=== PATIENT | female | born 1965 | race Caucasian/White ===

== ENCOUNTER 2016-05-04 07:14 | Emergency (ER) | payer OTHER ==
[2016-05-04 07:33] VITALS: BP 120/76
--- NOTE | 2016-05-04 07:55 | UC ---
Respiratory Complaint HPI - HPI Summary HPI Summary: The patient comes in today for: 1. Sinus congestion Onset: 4 days ago. Palliative/provocative: Nothing makes her symptoms better or worse. Quality: Pressure Region: Sinuses. Severity: 6/10 Time: Constant. Associated symptoms: Sore throat: Present. Rhinitis: Yellow Upper tooth pain: None. Cough: "a little bit." Fevers: None. Chest pain: None. Dyspnea: None. * - History of Current Complaint Chief Complaint: UCRespiratory Stated Complaint: SINUS COMPLAINT Time Seen by Provider: 05/04/16 07:51 Hx Obtained From: Patient Hx Last Menstrual Period: Present ?: No - Allergies/Home Medications Allergies/Adverse Reactions: Allergies Allergy/AdvReac Type Severity Reaction Status Date / Time Codeine Allergy Difficulty Verified 05/04/16 07:22 Breathing Meperidine [From Demerol HCl] Allergy Difficulty Verified 05/04/16 07:22 Breathing seasonal Allergy Sneezing Uncoded 05/04/16 07:22 tomatoes Allergy Vomiting Uncoded 05/04/16 07:22 Home Medications: Home Medications Meloxicam(NF) [Mobic(NF)] 15 mg PO DAILY 05/04/16 [History Confirmed 05/04/16] Zeoyaxvciuvxw-Srnoivetcnuwq-Or [Mucinex Sinus-Max Pressur] 2 cap PO Q4H PRN [History Confirmed 05/04/16] PMH/Surg Hx/FS Hx/Imm Hx Previously Healthy: Yes Endocrine History Of: Denies: Diabetes, Thyroid Disease, Hyperthyroidism, Hypothyroidism, Dyslipidemia Cardiovascular History Of: Denies: Cardiac Disorders, Hypertension, Pacemaker/ICD, Myocardial Infarction , Congestive Heart Failure, Atrial Fibrillation, Deep Vein Thrombosis, Bleeding Disorders Respiratory History Of: Denies: COPD, Asthma, Bronchitis, Pneumonia, Pulmonary Embolism GI/ History Of: Denies: Gastroesophageal Reflux, Ulcer, Gastrointestinal Bleed, Gall Bladder Disease, Kidney Stones, Diverticulitis, Renal Disease, Urosepsis Neurological History Of: Denies: TIA, CVA, Dementia, Seizures, Migraine Psychological History Of: Denies: Anxiety, Depression, Bipolar Disorder, Schizophrenia, Post Traumatic Stress Disorder Cancer History Of: Denies: Lung Cancer, Colorectal Cancer, Breast Cancer, Prostate Cancer Other History Of: Negative For: HIV, Hepatitis B, Hepatitis C, Anticoagulant Therapy - Surgical History Surgical History: Yes Surgery Procedure, Year, and Place: Cholecystectomy, ~1999. Thyroidectomy, 1991. Bilateral Patella "they snapped the cords" Surgery, as a teen - Family History Known Family History: Negative: Cardiac Disease, Hypertension - Social History Occupation: Employed Full-time Alcohol Use: "a glass every several weeks or so" Substance Use Type: None Smoking Status (MU): Never Smoked Tobacco - Immunization History Most Recent Influenza Vaccination: December 2015 Review of Systems Constitutional: Negative Skin: Negative Eyes: Negative ENT: Sore Throat, Nasal Discharge Respiratory: Negative Cardiovascular: Negative Gastrointestinal: Negative Genitourinary: Negative All Other Systems Reviewed And Are Negative: Yes Physical Exam Triage Information Reviewed: Yes Appearance: Well-Appearing, No Pain Distress, Well-Nourished Vital Signs: Initial Vital Signs Temp 98.2 F 05/04/16 07:19 Pulse 80 05/04/16 07:19 Resp 16 05/04/16 07:19 BP 120/76 05/04/16 07:19 Pulse Ox 99 05/04/16 07:19 Vital Signs Reviewed: Yes Eyes: Positive: Conjunctiva Clear. Negative: Discharge ENT: Positive: Hearing grossly normal, Other: - Sinuses: Pressure leads to discomfort.. Negative: Pharyngeal erythema, Nasal congestion, Nasal drainage, TM bulging, TM dull, TM red, Tonsillar swelling, Tonsillar exudate Dental: Negative: Gross Decay/Caries @, Dental Fracture @ Neck: Positive: Supple, Nontender, No Lymphadenopathy. Negative: Nuchal Rigidity Respiratory: Positive: Chest non-tender, Lungs clear, No respiratory distress, No accessory muscle use. Negative: Crackles, Wheezing Cardiovascular: Positive: RRR, No Murmur Abdomen Description: Positive: Nontender, No Organomegaly, Soft. Negative: Distended, Guarding Musculoskeletal: Positive: Strength Intact, ROM Intact, No Edema Neurological: Positive: Alert, Muscle Tone Normal Psychological: Positive: Age Appropriate Behavior, Consolable Skin: Negative: rashes, breakdown UC Diagnostic Evaluation - Laboratory O2 Sat by Pulse Oximetry: 99 Respiratory Course/Dx - Differential Dx/Diagnosis Provider Diagnoses: Sinusitis Discharge - Discharge Plan Condition: Stable Disposition: HOME Patient Education Materials: Sinusitis (ED) Forms: *Work Release Referrals: Sara Christianson MD [Primary Care Provider] -
== END 2016-05-04 08:12 | disposition home or self-care (01) ==
LOC: UCCORT 07:14
DX: J32.9 Chronic sinusitis, unspecified (principal); M79.1 Myalgia; Z88.5 Allergy status to narcotic agent; Z91.018 Allergy to other foods
CPT/HCPCS: 99212; G0463

== ENCOUNTER 2017-02-02 05:57 | Day surgery (SDC) | payer OTHER ==
--- NOTE | 2017-01-26 10:33 | HP ---
AMENDED REPORT NOW INCLUDES COSIGNER DESIGNATION - ESIGNED BEFORE ADJUSTMENT HISTORY AND PHYSICAL: DATE OF SURGERY: 02/02/17 DATE OF OFFICE VISIT: 01/23/17 SURGEON: Dr. Suze Catherine * (DICTATED BY SULLY GUSTAFSON) PROCEDURE: Left knee arthroscopy with partial medial meniscectomy, possible chondroplasty, possible synovectomy. CHIEF COMPLAINT: Left knee pain. HISTORY OF PRESENT ILLNESS: Ms. Umanzor is a 51-year-old female with complaints of left knee pain and MRI shows a tear of the anterior horn of the medial meniscus. She has failed conservative treatment and elected to proceed with left knee arthroscopy with partial medial meniscectomy. PAST MEDICAL HISTORY: Hypothyroidism, history of DVT after a crush injury to the leg. PAST SURGICAL HISTORY: Partial thyroidectomy, bilateral knee arthroscopies, cholecystectomy. CURRENT MEDICATIONS: Naproxen, minocycline, and vitamin D. ALLERGIES: DEMEROL, CODEINE; however, PERCOCET is okay to take. FAMILY HISTORY: Diabetes and cancer. SOCIAL HISTORY: She is a 51-year-old female. She lives with her and son. She works in a [employer]. She does not smoke or use drugs. She uses occasional alcohol. REVIEW OF SYSTEMS: A complete 14-point review of systems was reviewed with the patient, positive for history of a DVT. She denies any history of anesthesia problems, hepatitis C or HIV. PHYSICAL EXAMINATION GENERAL: She is a well developed, well nourished, in no acute distress. VITAL SIGNS: She stands 5 feet 6 inches tall, weighs 200 pounds. Her blood pressure is 118/79, her heart rate is 80. HEENT: Normocephalic, atraumatic. NECK: Supple. No palpable lymph nodes. PULMONARY: Lungs are clear to auscultation bilaterally. CARDIO: Regular rate and rhythm. Strong S1 and S2. ABDOMEN: Soft, nontender, nondistended. NEUROLOGIC: Alert and oriented x3. Cranial nerves II through XII intact. MUSCULOSKELETAL: Left lower extremity, the skin is intact. There are no open wounds or abrasions. There is some tenderness over the medial joint line, 5 to 130 degrees of flexion. No varus or valgus instability. Positive Apley's and Blayne's. Negative Dee's. 2+ dorsalis pedis pulses. In the lower extremity muscle group strengths are intact at 5/5. ASSESSMENT AND PLAN: Ms. Umanzor is a 51-year-old female with complaints of left knee pain and MRI confirms a tear of the medial meniscus. She has elected to proceed with left knee arthroscopy with partial medial meniscectomy, possible chondroplasty, possible synovectomy, and surgery is scheduled for 02/02/[address] Catherine discussed the risks and benefits of the surgery at today' s visit and all of her questions were answered. She will follow up with Dr. Catherine 2 weeks after the surgery. SULLY GUSTAFSON [id number]/[facility] #: [id number] MTDD
[~2017-02-02 05:57] MED LIST: Buffered Lidocaine 0.9% SYRIN* 5 ML/SYR SYRINGE INTRADERM ONE
[2017-02-02] MEDS ORDERED: Dexamethasone IV* 4 MG/ML 1 ML (4 MG) IV SLOW PU ONE (06:00)
[2017-02-02] MEDS ORDERED: Famotidine TAB* 20 MG PO ONE (06:00)
[2017-02-02] MEDS ORDERED: Dexamethasone IV* 4 MG/ML 1 ML (4 MG) ONE (06:06)
[2017-02-02] MEDS ORDERED: Buffered Lidocaine 0.9% SYRIN* 5 ML/SYR SYRINGE ONE (06:07)
[2017-02-02] MEDS ORDERED: ceFAZolin 2 GM PREMIX (*) 2 GM/50 ML BAG IVPB ONE (06:07)
[2017-02-02] MEDS ORDERED: Famotidine TAB* 20 MG ONE (06:07)
[2017-02-02] MEDS ORDERED: EPINEPHrine AMP 1 MG/ML ONE (06:42)
[2017-02-02] MEDS ORDERED: methylPREDNISolone ACETATE 80* 80 MG/ML 1 ML VIAL ONE (06:42)
[2017-02-02] MEDS ORDERED: Bupivacaine 0.5% SDV PF* 30 ML VIAL ONE (06:42)
[2017-02-02] MEDS ORDERED: Midazolam* 1 MG/ML 2 ML VIAL (2 MG) ONE (07:19)
[2017-02-02] MEDS ORDERED: fentaNYL* 50 MCG/ML 2 ML VIAL (100 MCG VIAL) ONE ×3 (07:19→09:45)
[2017-02-02] MEDS ORDERED: Phenylephrine INJ* 10 MG/ML 1 ML VIAL (10 MG) ONE (07:54)
[2017-02-02] MEDS ORDERED: DiMENhydriNATE IV* 50 MG/ML VIAL IV PUSH PRN (08:08)
[2017-02-02] MEDS: fentaNYL* 50 MCG/ML 2 ML VIAL (100 MCG VIAL) IV PRN ×3 (08:53→09:45)
[2017-02-02] MEDS ORDERED: oxyCODONE/Acetamin 5/325 MG* TAB ONE (08:56)
[2017-02-02 11:00] VITALS: BP 101/65
--- NOTE | 2017-02-03 07:17 | OP ---
DATE OF OPERATION: 02/02/17 - [facility] DATE OF : 69 SURGEON: Suze Catherine MD SENIOR SYSTEMS DEVELOPER: SULLY Gomez. Ms. Castro did help throughout the procedure with preparation of the leg, retraction of the instruments, manipulation of the knee, and wound closure. ANESTHESIOLOGIST: Obdulio Gallegos MD ANESTHESIA: General. PRE-OP DIAGNOSIS: Left knee pain with medial meniscal tear. POST-OP DIAGNOSES: Left knee longitudinal tear of the anterior medial meniscus , radial tear of the posterior horn of the lateral meniscus, medial plica, medial and patellofemoral xhjytvke-gx-fmqkmv arthritis. OPERATIVE PROCEDURE: Left knee arthroscopy with partial medial meniscectomy, partial lateral meniscectomy, medial chondroplasty, medial plica excision. INDICATIONS: Ms. Umanzor is a 51-year-old female with chronic pain in the left knee twisting injury last winter. She presented to my clinic in October with mechanical symptoms of meniscal tear. She had MRI showing anterior medial meniscal tear. Plain radiographs showed some mild arthritic changes. The patient tried conservative treatment and has failed. She elected to undergo left knee arthroscopy because of continued mechanical symptoms due to the meniscus tear. Informed consent was obtained from the patient. She understood the risks of surgery included but were not limited to bleeding, infection, damage to nearby structures, continued pain, need for further surgery, retear of the meniscus, continued arthritic pain, stroke, heart attack, blood clot, and . She wished to proceed. ESTIMATED BLOOD LOSS: Less than 25 cc. COMPLICATIONS: None. SPECIMEN: None. INTRAOPERATIVE FINDINGS: Intraoperatively, the patient was noted to have grade 3 and 4 Outerbridge cartilage changes in the medial and patellofemoral compartment. She had exposed subchondral bone and significant cartilage tearing with flaps along the medial femoral condyle and both medial and lateral patellar facets. She had a medial plica which did impinge along the medial femoral condyle with range of motion. She had a longitudinal-type complex tear in the anterior 50% of the medial meniscus involving the white-red zone. She had a radial tear in the anterior midportion and posterior horn of the lateral meniscus. DESCRIPTION OF PROCEDURE: Ms. Umanzor was identified in the preanesthesia unit. Her left lower extremity was marked as the correct operative side. Informed consent was signed and placed in the chart. The patient was taken to the operating room. The left lower extremity was prepped and draped in the usual sterile fashion. Preop time-out was made to correctly identify the patient's side and site. Appropriate perioperative antibiotics were given within 1 hour of incision. A standard 0.5-cm anterolateral portal incision was made with a 15 blade and carried down through the capsule. The trocar was introduced. As soon as the light and water sources were turned on, there was immediate visualization of the suprapatellar pouch. A tour of the knee joint was performed. Suprapatellar pouch had no obvious abnormality. Medial gutters showed a plica that did impinge with range of motion. No loose bodies were visualized. Medial compartment showed cartilage flapping and exposed subchondral bone along the medial femoral condyle. This had grade 3 and 4 Outerbridge cartilage changes. Medial meniscus had a visible displaced longitudinal complex tear involving the anterior 50% of the meniscus. No obvious tearing along the posterior medial meniscus. ACL appeared to be intact. The knee was placed in a figure-of-4 position. There was radial tear along the anterior, middle, and posterior horn of the lateral meniscus. No significant degenerative changes in this compartment. Lateral gutters showed no obvious plica or loose body. Under direct visualization, the medial portal incision was made with a 15- blade. A probe was introduced. A second tour of the joint was performed. No additional findings were noted. Shaver and radiofrequency ablation wand were placed in the anterior joint to improve visualization. A straight biter and shaver were used to perform partial medial meniscectomy until a smooth border of the meniscus was obtained. Probe was used to ensure there was no further meniscal tear. This was mainly in the white-red zone. Next, the radiofrequency ablation wand was used to smooth any cartilage flapping along the medial femoral condyle. Shaver and radiofrequency ablation wand were used to conservatively excise the plica until there was no further impingement along the medial femoral condyle. The knee was placed in a figure-of-4 position. Shaver was used to excise the areas with the radial tears along the anterior midportion and posterior horn of the lateral meniscus. This involved mainly the white-white and white-red zone. Smooth border of the lateral meniscus remained. The knee was copiously irrigated with sterile saline. All instruments were carefully removed. The incisions were closed using interrupted 3-0 nylon suture. Intraarticular injection of 80 mg of Depo-Medrol and 6 cc of 0.25% Marcaine was placed in the knee joint. The patient's incisions were covered with Xeroform, 4x4's, and Webril. Cold pack and ice pack were placed over this. The patient's anesthesia was reversed without difficulty. She was taken to the PACU in stable condition. Intended weightbearing will be weightbearing as tolerated. Intended DVT prophylaxis will be aspirin. [id number]/[facility] #: [id number] T[facility] HOSPITALRoni
== END 2017-02-02 10:32 | disposition home or self-care (01) ==
LOC: OR 05:57
PROVIDERS: ATTEND Orthopaedic Surgery Adult Reconstructive Orthopaedic Surgery
DX: S83.242A Other tear of medial meniscus, current injury, left knee, initial encounter (principal); S83.282A Other tear of lateral meniscus, current injury, left knee, initial encounter; X50.1XXA Overexertion from prolonged static or awkward postures, initial encounter; Y92.9 Unspecified place or not applicable; M67.52 Plica syndrome, left knee; M17.12 Unilateral primary osteoarthritis, left knee; E03.9 Hypothyroidism, unspecified; Z86.718 Personal history of other venous thrombosis and embolism; Z68.32 Body mass index [BMI] 32.0-32.9, adult; M19.90 Unspecified osteoarthritis, unspecified site
CPT/HCPCS: 81025; A9270-GY; J0171; J0690; J1040; J1100; J2250; J3010

== ENCOUNTER 2017-07-28 19:08 | Emergency (ER) | payer OTHER ==
[2017-07-28 19:24] VITALS: BP 125/78
--- NOTE | 2017-07-28 19:29 | UC ---
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 rt upper molar w/ abscess and tenderness. no fevers. + rt face swelling - History of Current Complaint Chief Complaint: UCDentalProblem Stated Complaint: ORAL COMPLAINT Time Seen by Provider: 07/28/17 19:26 Hx Last Menstrual Period: CURRENT Pain Intensity: 10 - Allergies/Home Medications Allergies/Adverse Reactions: Allergies Allergy/AdvReac Type Severity Reaction Status Date / Time codeine Allergy Difficulty Verified 07/28/17 19:15 Breathing meperidine Allergy Difficulty Verified 07/28/17 19:15 Breathing seasonal Allergy Sneezing Uncoded 07/28/17 19:15 tomatoes Allergy Vomiting Uncoded 07/28/17 19:15 Home Medications: Home Medications Cholecalciferol TAB* [Vitamin D TAB*] 1,000 unit PO DAILY 07/28/17 [History Confirmed 07/28/17] PMH/Surg Hx/FS Hx/Imm Hx Previously Healthy: Yes Other History Of: Negative For: HIV, Hepatitis B, Hepatitis C, Anticoagulant Therapy - Surgical History Surgical History: Yes Surgery Procedure, Year, and Place: Cholecystectomy, ~1999 [place]. Thyroidectomy, 1992 [place]. 1983 & 1984 Bilateral Patella Surgery, [place]. LEFT PATELLA SX--01/2017 - Family History Known Family History: Negative: Cardiac Disease, Hypertension - Social History Alcohol Use: Rare Alcohol Amount: 2-3 DRINKS/MONTH Substance Use Type: None Smoking Status (MU): Never Smoked Tobacco Have You Smoked in the Last Year: No - Immunization History Most Recent Influenza Vaccination: December 2015 Review of Systems Constitutional: Negative Skin: Negative Eyes: Negative ENT: Dental Pain Respiratory: Negative Cardiovascular: Negative Gastrointestinal: Negative Genitourinary: Negative Motor: Negative Neurovascular: Negative Musculoskeletal: Negative Neurological: Negative Psychological: Negative Is Patient Immunocompromised?: No All Other Systems Reviewed And Are Negative: Yes Physical Exam Triage Information Reviewed: Yes Appearance: Well-Appearing, Pain Distress - mild-mod Vital Signs: Initial Vital Signs Temp 97.5 F 07/28/17 19:18 Pulse 82 07/28/17 19:18 Resp 16 07/28/17 19:18 BP 125/78 07/28/17 19:18 Pulse Ox 97 07/28/17 19:18 Vital Signs Reviewed: Yes Eye Exam: Normal ENT Exam: Normal ENT: Positive: Pharynx normal, TMs normal Dental: Positive: Dental Fracture @, Abscess @ - rt upper molar with small abcess just at gum line. mild swelling of rt cheek. Neck exam: Normal Neck: Positive: Supple, Nontender, No Lymphadenopathy Respiratory: Positive: Lungs clear, Normal breath sounds, No respiratory distress, No accessory muscle use Cardiovascular Exam: Normal Cardiovascular: Positive: RRR, No Murmur Abdomen Description: Positive: Nontender, Soft Neurological Exam: Normal Psychological Exam: Normal Skin Exam: Normal Dental Complaint Course/Dx - Differential Dx/Diagnosis Differential Diagnosis/Dx: Dental Abscess, Dental Caries, Fractured Tooth Provider Diagnoses: dental frx and abscess Discharge - Sign-Out/Discharge Documenting (check all that apply): Post-Discharge Follow Up - Discharge Plan Condition: Stable Disposition: HOME Prescriptions: Amoxicillin/Clavulanate TAB* [Augmentin TAB 875*] 875 mg PO BID #20 tab Patient Education Materials: Dental Abscess (ED) Referrals: Ladan Lay MD [Primary Care Provider] - Additional Instructions: -Make sure to take a probiotic daily while on the antibiotics. Some brand names are florastor, align and [employer] health. Make sure to call the dentist on Monday. - Billing Disposition and Condition Condition: STABLE Disposition: HOME
== END 2017-07-28 19:43 | disposition home or self-care (01) ==
LOC: UCCORT 19:08
DX: S02.5XXA Fracture of tooth (traumatic), initial encounter for closed fracture (principal); X58.XXXA Exposure to other specified factors, initial encounter; Y93.9 Activity, unspecified; Y92.9 Unspecified place or not applicable; K04.7 Periapical abscess without sinus; Z91.018 Allergy to other foods; Z88.5 Allergy status to narcotic agent
CPT/HCPCS: 99212; G0463